=== PATIENT | female | born 1965 | race Caucasian/White ===

== ENCOUNTER → 2024-12-19 13:41 | Outpatient (CLI) | payer BC, SELFPAY ==
--- NOTE | 2024-12-19 13:42 | DI.US.S_ITS ---
PROCEDURE: US SOFT TISSUE HEAD AND NECK INDICATIONS: LEFT NECK LUMP TECHNIQUE: Real-time scanning was performed of the neck region of interest, with image documentation. Color Doppler was also utilized. COMPARISON: None. FINDINGS: At the area of clinical concern within the left posterior lateral neck, there is a normal appearing lymph node with a normal appearing fatty hilum measuring 13 x 2 x 15 mm. IMPRESSION: Normal sized, normal appearing lymph node seen at the site of clinical concern. Dictated by: Tk Mancilla M.D. on 12/19/2024 at 17:32 Approved by: Tk Mancilla M.D. on 12/19/2024 at 17:33
== END ==
PROVIDERS: PCP Student in an Organized Health Care Education/Training Program; Referring Provider Student in an Organized Health Care Education/Training Program; Visit Provider Student in an Organized Health Care Education/Training Program
DX: R22.1 Localized swelling, mass and lump, neck (principal)
CPT/HCPCS: 76536

== ENCOUNTER → 2024-12-23 15:14 | Outpatient (CLI) | payer BC, SELFPAY ==
[2024-12-23 17:18] LABS: COVID-19 CEPHEID 4-PLEX PCR Negative (Negative); Influenza A - CEPHEID Flu A NEGATIVE (NEGATIVE); Influenza B - CEPHEID Flu B NEGATIVE (NEGATIVE)
== END ==
PROVIDERS: PCP Student in an Organized Health Care Education/Training Program; Visit Provider Chiropractor
DX: J02.9 Acute pharyngitis, unspecified (principal); R05.1 Acute cough
CPT/HCPCS: 87070; 87637